=== PATIENT | female | born 1975 | race Caucasian/White ===

== ENCOUNTER 2023-09-03 10:03 | Emergency (ER) | payer OTHER ==
[~2023-09-03] VITALS: Ht 162.6 cm; Wt 99.0 kg
[2023-09-03 11:09] VITALS: BP 143/86; PULSE 87; RESP 18; TEMP 98.1; O2SAT 97
[2023-09-03] MEDS: KETOROLAC TROMETH 60MG/2ML VIAL IM ONE (11:43)
[2023-09-03] MEDS ORDERED: NAPR-746 PO (11:56)
[2023-09-03] MEDS ORDERED: METH-1182 PO (11:56)
== END 2023-09-03 12:05 | disposition home or self-care (01) ==
LOC: ER 10:03
DX: S16.1XXA Strain of muscle, fascia and tendon at neck level, initial encounter (principal); X58.XXXA Exposure to other specified factors, initial encounter; Y93.89 Activity, other specified; Y92.89 Other specified places as the place of occurrence of the external cause; Y99.8 Other external cause status
CPT/HCPCS: 72040; 96372; 99283; J1885

== ENCOUNTER 2023-11-04 18:12 | Emergency (ER) | payer OTHER ==
[~2023-11-04] VITALS: Ht 167.6 cm; Wt 95.8 kg
[~2023-11-04 18:12] MED LIST: METH-1182 PO; NAPR-746 PO
[2023-11-04] MEDS ORDERED: AUG875T PO (20:49)
[2023-11-04] MEDS: cefTRIAXone SOD 1,000 MG VL IM ONE (21:04)
[2023-11-04 21:07] VITALS: BP 136/91; PULSE 75; RESP 18; TEMP 98.2; O2SAT 98
== END 2023-11-04 20:52 | disposition home or self-care (01) ==
LOC: ER 18:12
DX: L03.116 Cellulitis of left lower limb (principal); I10 Essential (primary) hypertension; W55.01XA Bitten by cat, initial encounter; Y93.89 Activity, other specified; Y92.89 Other specified places as the place of occurrence of the external cause; Y99.8 Other external cause status
CPT/HCPCS: 96372; 99283; J0696

== ENCOUNTER 2024-05-19 19:13 | Emergency (ER) | payer OTHER ==
[~2024-05-19] VITALS: Ht 162.6 cm; Wt 91.9 kg
[~2024-05-19 19:13] MED LIST changes: +AUG875T PO
[2024-05-19 21:03] VITALS: BP 135/82; PULSE 84; TEMP 98.1
[2024-05-19 21:18] LABS: COVID19 ANTIGEN SOFIA FIA NEGATIVE (NEGATIVE)
[2024-05-19] MEDS: methylPREDNISolone SOD SUCC 125 MG/2 ML VL IM ONE (21:18)
[2024-05-19 21:21] LABS: Rapid Influenza A Positive (Negative); Rapid Influenza B Negative (Negative)
[2024-05-19] MEDS ORDERED: AZIT-43 PO (21:24)
[2024-05-19] MEDS ORDERED: ALBUAER3 IN (21:24)
[2024-05-19] MEDS ORDERED: PRED20TA2 PO (21:24)
[2024-05-19] MEDS ORDERED: OSEL75CA5 PO (21:24)
[2024-05-19] MEDS ORDERED: ACET500T58 PO (21:24)
--- NOTE | 2024-05-19 21:27 | ED.PDOC ---
SOB-HPI HPI Comments 48 presents to ER with complaints of cough x4 days. Patient with PMH of asthma reports that she has been experiencing cough and congestion x4 days. Reports that the cough was initially dry but turned productive with yellow phlegm x2 days. She reports 7/10 left upper back pain that started with onset of cough, denying any other current pain. Denies use of medications for current symptoms. Patient presents to ER ambulatory on arrival, with steady gait, in no distress with vitals stable. Denies fever, body aches, chills, nausea/vomiting, chest pain, shortness of breath, hemoptysis, sore throat, night sweats, headache or any further symptoms/complaints Chief Complaint: Flu like Time Seen by MD: 20:09 Primary Care Provider: [facility] Reviewed notes: Nurses Notes, Medications, Allergies Information Source: Patient Mode of Arrival: Ambulatory Past Medical History PAST MEDICAL HISTORY: Asthma, HTN Surgical History: Appendectomy, Hysterectomy (Partial) STUDENT OFFICER History: No Pertinent STUDENT OFFICER History Family History Family History: Unknown Social History Smoker: Non-Smoker Alcohol: Denies ETOH Use Drugs: Denies Drug Use Lives In: Home Constitutional: denies: chills, diaphoresis, fatigue, fever, malaise, sweats, weakness, others EENTM: reports: others (As stated in HPI) Respiratory: reports: others (As stated in HPI) Cardiovascular: denies: chest pain, dizzy spells, diaphoresis, Dyspnea on exertion, edema, irregular heart beat, left arm pain, lightheadedness, palpitations, PND, syncope, others Gastrointestinal: denies: abdomen distended, abdominal pain, blood streaked bowels, constipated, diarrhea, dysphagia, difficulty swallowing, hematemesis, melena, nausea, poor appetite, poor fluid intake, rectal bleeding, rectal pain, vomiting, others Genitourinary: denies: abnormal vagina bleeding, burning, dyspareunia, dysuria, flank pain, frequency, hematuria, incontinence, pain, , vagina discharge, urgency, others Neurological: denies: dizziness, fainting, headache, left sided numbness, left sided weakness, numbness, paresthesia, pre-existing deficit, right sided numbness, right sided weakness, seizure, speech problems, tingling, tremors, weakness, others Musculoskeletal: reports: others (As stated in HPI) Integumetry: denies: bruises, change in color, change in hair/nails, dryness, laceration, lesions, lumps, rash, wounds, others Allergic/Immunocompromised: denies: Difficulty Healing, Frequent Infections, Hives, Itching, others Hematologic/Lymphatic: denies: anemia, blood clots, easy bleeding, easy bruising, swollen glands, others Endocrine: denies: excessive hunger, excessive sweating, excessive thirst, excessive urination, flushing, intolerance to cold, intolerance to heat, unexplained weight gain, unexplained weight loss, others Psychiatric: denies: anxiety, bipolar disorder, depression, hopeless, panic disorder, schizophrenia, sleepless, suicidal, others Physical Exam General Appearance: No Apparent Distress, Obese HEENT: Normal ENT Inspection, PERRL/EOMI, Pharynx Normal, TMs Normal Neck: Full Range of Motion, Non-Tender, Normal Respiratory: Chest Non-Tender, Lungs Clear, No Accessory Muscle Use, No Respiratory Distress, Normal Breath Sounds Cardiovascular: No Murmur, No Gallop, Regular Rate/Rhythm Breast Exam: Deferred Gastrointestinal: Non Tender, No Pulsatile Mass, Soft Genitalia: Deferred Pelvic: Deferred Rectal: Deferred Extremities: Normal capillary refill, Normal range of motion Neurologic: Alert, No Motor Deficits, Normal Affect, Normal Mood, No Sensory Deficits Cerebellar Function: Normal Reflexes: Normal Skin: Dry, Normal Color, Warm Peripheral Pulses: 2+ Radial (R), 2+ Radial (L), 2+ Brachial (R), 2+ Brachial (L) Lymphatic: No Adenopathy Was a procedure done? Was a procedure done?: No Differential Dx Differential Diagnosis: Pneumonia, Respiratory Distress, Other (covid-19) X-Ray, Labs, Meds, VS Vital Signs Date Time Temp Pulse Resp B/P (MAP) Pulse Ox O2 Delivery O2 Flow Rate FiO2 05/19/24 21:03 84 18 100 Room Air 05/19/24 21:03 98.1 84 18 135/82 (99) 100 98.1 05/19/24 19:54 98.1 84 18 135/82 (99) 100 Lab Test 05/19/24 20:02 Range/Units Influenza Type A Antigen Positive Negative Influenza Type B Antigen Negative Negative SARS-CoV-2 Antigen (Rapid) Negative NEGATIVE Current Medications Medications (Trade) Dose Ordered Sig/Jocelyn Route Start Time Stop Time Status Last Admin Albuterol (Ventolin Medneb) 5 mg ONCE ONCE NEB 05/19/24 21:15 05/19/24 21:16 DC 05/19/24 21:36 Ipratropium [place] (Atrovent Medneb) 0.5 mg ONCE ONCE NEB 05/19/24 21:15 05/19/24 21:16 DC 05/19/24 21:36 Methylprednisolone Sodium Succinate (Solu Medrol) 125 mg ONCE ONCE IM 05/19/24 21:15 05/19/24 21:16 DC 05/19/24 21:18 Influenza A reviewed- positive Influenza B reviewed-negative Tammi reviewed-negative Duo nebulizer treatment ordered Solu-Medrol 125 mg IM ordered Rocephin 1 g IM ordered Patient reported improvement in symptoms, tolerating p.o. intake well and in no distress prior to discharge Advised to drink plenty of fluids Advised to follow up with PCP in 1-2 days Patient verbalized understanding and agreeable with current plan of care Advised to return to ER immediately if symptoms worsen Time of 1ST Reevaluation: 21:04 Reevaluation 1ST: N/A Patient Education/Counseling: Diagnosis, Treatment, Prognosis, Need For Follow Up Family Education/Counseling: No Family Present Departure 1 Departure Time of Disposition: 21:20 Impression: Primary Impression: Influenza A Additional Impression: Acute asthmatic bronchitis Disposition: 01 HOME / SELF CARE / HOMELESS Condition: Stable e-Prescriptions Albuterol Sulfate (VENTOLIN MDI) 90 Mcg Ih 2 PUFF IN Q6HPRN, #1 INH 0 Refills Prov: LAURA DARLING 05/19/24 Prednisone (Prednisone) 20 Mg Tab 20 MG PO BID for 5 Days, #10 TAB 0 Refills Prov: LAURA DARLING 05/19/24 Azithromycin (Azithromycin) 250 Mg Tab 250 MG PO DAILY MDD 500 for 5 Days, #6 TAB 0 Refills 2 TABLETS ORALLY ON DAY ONE, THEN 1 TABLET ORALLY DAILY FOR 4 DAYS Prov: LAURA DARLING 05/19/24 Acetaminophen (Acetaminophen) 500 Mg Tab 500 MG PO Q4HPRN, #30 TAB 0 Refills Prov: LAURA DARLING 05/19/24 Oseltamivir Phosphate (Tamiflu) 75 Mg Cap 1 CAP PO BID for 5 Days, #10 CAP 0 Refills Prov: LAURA DARLING 05/19/24 Discharged With: Self Critical Care Note Critical Care Time?: No Stability Stability form required: No Heart Score Heart Score: Heart Score Response (Comments) Value History N/A 0 EKG N/A 0 Age N/A 0 Risk Factors N/A 0 Troponin N/A 0 Total 0 LAURA DARLING May 19, 2024 21:27
[2024-05-19 21:36] VITALS: RESP 18; O2SAT 99
[2024-05-19] MEDS: ALBUTEROL SULF 2.5 MG/0.5ML(0.5%) NEB SOLN NEB ONE (21:36)
[2024-05-19] MEDS: IPRATROPIUM BROM 0.5 MG/2.5ML INH SOL NEB ONE (21:36)
[2024-05-19] MEDS: cefTRIAXone SOD 1,000 MG VL IM ONE (21:39)
== END 2024-05-19 21:53 | disposition home or self-care (01) ==
LOC: ER 19:13
DX: J10.1 Influenza due to other identified influenza virus with other respiratory manifestations (principal); J45.909 Unspecified asthma, uncomplicated; I10 Essential (primary) hypertension; Z90.49 Acquired absence of other specified parts of digestive tract; Z90.710 Acquired absence of both cervix and uterus; Z20.822 Contact with and (suspected) exposure to COVID-19
CPT/HCPCS: 36415; 87426; 87804; 94640; 96372; 99284; J0696; J2919